=== PATIENT | male | born 1995 | race Caucasian/White ===

== ENCOUNTER 2024-12-31 16:42 | Inpatient (IN) | payer BC, SELFPAY ==
[2024-12-31] VITALS (13 sets, daily range): BP systolic 129–156; BP diastolic 68–88; PULSE 68–110; RESP 16–20; TEMP 36.5–36.7; O2SAT 95–100; BMI 23.1; BMI 23.9
--- OUTSIDE RECORDS SUMMARY | 2024-12-31 16:43 | XMS_ITS | Clinical Summary ---
Author Organization [employer] Address [address] [place] [id number] Care Team Providers Care Site Supervisor Name Role Phone Rosy Lunsford Primary Care Provider [phone] Allergies Active Allergy Reactions Criticality Noted Date Comments Venlafaxine Analogues Other - Describe I n Comment Field 06/02/2018 Worse depression Medications buPROPion (WELLBUTRIN XL) 150 mg Extended-Release tabletIndications :MDD (major depressive disorder), recurrent episode, moderate (HC) Take 1 Tablet (150 mg) by mouth once daily in the morning. 90 Tablet 3 4 Active metoprolol succinate (Toprol XL) 25 mg Sustained-Release tabletIndications :Elevated BP without diagnosis of hypertension Take 1 Tablet (25 mg) by mouth once daily. 90 Tablet 3 4 Active cyclobenzaprine (FLEXERIL) 10 mg tabletIndications :Muscle spasm Take 1 Tablet (10 mg) by mouth 3 times daily if needed for Muscle Spasm. 30 Tablet 1 4 Active albuterol HFA (PRO-AIR; VENTOLIN; PROVENTIL) 90 mcg/actuation inhalerIndication s:Mild intermittent asthma without complication (HC) INHALE 2 PUFFS BY MOUTH EVERY 4 NEEDED FOR SHORTNESS OF BREATH OR WHEEZING 18 g 11 4 Active durable medical equipment (DME)Indications: Closed boxer's fracture, initial encounter TKO - The knuckle orthosis, left ulnar, right radial 4 Active busPIRone (BUSPAR) 10 mg tabletIndications :KATELYN (generalized anxiety disorder) Take 2 Tablets (20 mg) by mouth two times daily. 360 Tablet 3 Active Active Problems Problem Noted Date Diagnosed Date MDD (major depressive disord er), recurrent episode, moderate 04/27/2024 KATELYN (generalized anxiety disorder) 05/31/2023 Tobacco use disorder 12/16/2021 Reactive depression 06/03/2018 Anxiety 06/03/2018 Mild intermittent asthma without complication Congenital pes planus 12/20/2008 Unspecified asthma(493.90) 03/22/2007 Resolved Problems Problem Noted Date Diagnosed Date Resolved Date Pneumothorax on left 11/10/2023 024 Encounters Date Type Department Care Team Description 10/13/2024 Patient Outreach [facility] Care Management - Care Management Navigation/[facility] [address] [place] [address] Yany Lugo LGSW Population Health (Community Resource Navigation) 10/12/2024 3:05 PM FUR FINISHER Ancillary Procedure [facility] [address] [place] [address] 10/12/2024 3:00 PM FUR FINISHER Office Visit [facility] [address] [place] [address] Garfield Rey MD Recheck (Left hand pain) 10/12/2024 Travel from Last 3 Months Immunizations Immunization Administration Dates Next Due COVID-19 vaccine (Pfizer-Bio NTech 30mcg/0.3mL) 12YO+ ZACHARIAH-SUCROSE PF, MDV 10/22/2021 COVID-19 vaccine (Pfizer-Bio NTech 30mcg/0.3mL) PF, MDV 01/03/2021,12/13/2020 HIB PRP-T (ActHIB,Hiberix) 07/13/1996,,03/19/1995,02/05 Hepatitis B (Peds) 09/21/1995,03/19/1995, 995 Inactivated Polio Vaccine 07/06/2007,06/02/2000 Influenza, IIV3 (Age >=3 years) 07/31/2010,07/06 Influenza, IIV4 07/07/2023,06/23/2022,06/20/2021 Influenza, IIV4 (=>6mos) MDV 06/13/2020,07/05/20 MMR 06/02/2000,07/13/1996 Meningococcal Vaccine (Menactra) 07/06/2007 Oral Polio Vaccine 06/01/1995,03/19/1995, 995 Tdap 11/10/2023,07/06/2007 Varicella Vaccine 07/13/1996 Family History Medical History Relation Name Comments Asthma Brother Liver cancer Father in 5 month s Good Health Mother Sonia Good Health Sister Relation Name Status Comments Brother Father Mother Sonia Alive Sister Social History Tobacco Use Types Packs/Day Years Used Date Smoking Tobacco: Every Day Cigarettes 0.5 11.3 Started: 09/13/2013 Smokeless Tobacco: Never Tobacco Cessation:Ready to Q uit: No; Counseling Given: Yes Alcohol Use Standard Drinks/Week Comments No 0 (1 standard drink = 0.6 oz pur e alcohol) PHQ-2 Answer Date Recorded PHQ-2 TOTAL SCORE 2 04/27/2024 Social Connections Answer Date Recorded Do you often feel lonely or isolated from those around you? 4 09/14/2024 Financial Resource Strain Answer Date R ecorded Difficulty of Paying Living Expenses 1 09/14/2024 Difficulty of Paying Living Expenses 2 09/14/2024 Food Insecurity Answer Date Recorded Do you worry your food will run out before you are able to buy more? 2 09/14/2024 Transportation Needs Answer Date Record ed Does lack of transportation keep you from medica l appointments? 1 09/14/2024 Does lack of transportation keep you from work, meetings or getting things that you need? 1 09/14/2024 Housing Stability Answer Date Recorded What is your housing situation today? 1 09/14/2024 Utilities Answer Date Recorded Do you have trouble paying f or utilities (for example, heat, electricity, water, phone)? 2 09/14/2024 Sex and Gender Information Value Date Recorded Sex Assigned at Not on file Legal Sex Male 5:26 AM FUR FINISHER Gender Identity Not on file Sexual Orientation Not on file Occupation Industry Job Start Date Job End Date Not on file Not on file Not on file Not on file Obstetrics History Last Filed Vital Signs Vital Sign Reading Time Taken Comments Blood Pressure 149/81 09/14/2024 8:21 AM FUR FINISHER Pulse 67 09/14/2024 8:21 AM FUR FINISHER Temperature 37.1 C (98.8 F) 10/10/2018 1:59 PM FUR FINISHER Respiratory Rate - - Oxygen Saturation 100% 09/14/2024 8:21 AM FUR FINISHER Inhaled Oxygen Concentration - - Weight 75.8 kg (167 lb) 09/14/2024 8:21 AM FUR FINISHER Height 182.9 cm (6' 0.01) 06/23/2022 4:02 PM CD T Body Mass Index 22.64 06/23/2022 4:02 PM CDT Plan of Treatment Health Maintenance Due Date Last Done Comments HIV for age 15-65 2009 Hepatitis C screening for ag e 18-79 2012 Pneumococcal series for age 6-49 (1 of 2 - PCV) 2013 BMI (ht and wt on same day) for age 18+ 06/23/2023 06/23/2022, 01/07/2021, 12/10/2020, Additional history exists COVID-19 vaccine series ( season) 2024 10/22/2021, 10/22/2021, 01/03/2021, Additional history exists Depression screening for age 12+ 04/27/2025 04/27/2024, 05/11/2023, 06/23/2022, Additional history exists Influenza Vaccine (Season Ended) 2025 07/07/2023, 06/23/2022, 06/20/2021, Additional history exists Tetanus booster 11/10/2033 11/10/2023, 07/06/2007 Tdap Completed 11/10/2023, 07/06/2007 Procedures Procedure Name Priority Date/Time Associated Diagnosis Comments XR HAND 3 VIEWS LEFT Routine 10/12/2024 3:07 PM FUR FINISHER 5th metacarpal neck fracture, left hand from Last 3 Months Results * XR HAND 3 VIEWS LEFT (10/12/2024 3:07 PM FUR FINISHER) Anatomical Region Laterality Modality HANDS, HAND L Digital Radiogra phy Impressions 10/13/2024 8:56 AM FUR FINISHER See above All services were personally performed by Garfield Rey MD. Documentation performed by Marizol Vergara ATC based on my observation of services performed and provider statements to me. Garfield Rey MD 10/12/2024 Narrative 10/13/2024 8:56 AM FUR FINISHER This radiology exam was performed at the [place] and interpreted by interpreted by Garfield Rey MD. HISTORY: A 28 y.o. year - old male with left hand pain with history of trauma. TECHNICAL: THREE views of the left hand were obtained consisting of a PA, Lateral, and Oblique. FINDINGS: Radiographs of the left hand are reviewed today and show interval near complete healing at fifth metacarpal neck fracture site with unchanged alignment with approximate 40 degrees of apex dorsal angulation. There is new abundant callus forming. us Garfield Rey MD GENERAL IMAGING Final Re sult from Last 3 Months Insurance [facility] x5 (Home) [phone] x5 (Work) [employer] [address] [address] [place] [address] [employer] DEPT [id number] [place] [address] Care Teams Site Supervisor Relationship Specialty Start Date End Date Rosy Lunsford PA [address] [place], [place] [id number] PCP - General Physician Lard Bleacher 05/14/23
--- NOTE | 2024-12-31 17:01 | CRLHL7_ITS ---
For Patients: As a result of the Cures Act, medical imaging exams and procedure reports are released immediately into your electronic medical record. You may view this report before your referring provider. If you have questions, please contact your health care provider. INDICATION: : Right chest pain, history of pneumothorax. COMPARISON: Chest radiograph on January 01, 2022 and prior studies TECHNIQUE: Two view(s) of the chest FINDINGS: The cardiomediastinal silhouette and pulmonary vasculature are unremarkable. There is no focal airspace consolidation or pleural effusion. Moderate sized right pneumothorax with air gap measuring approximately 3.5 centimeters at the right lung apex. No displaced fractures. IMPRESSION: Moderate size right pneumothorax. Dictated by Zain Avendaño MD @ 12/31/2024 5:33:37 PM (Electronically Signed)
[2024-12-31] MEDS: KETOROLAC 15 MG/ML inj IVP (17:19)
[2024-12-31] MEDS: 0.9 % SODIUM CHLORIDE 500 ML 500 ML IV (17:19)
[2024-12-31 17:40] LABS: Troponin, Point-of-Care* 0.01 ng/ml (0.01-0.04)
--- NOTE | 2024-12-31 17:59 | ED_ITS ---
HPI - General Adult General Date Seen: 12/31/24 Chief complaint: Chest Pain Stated complaint: chest pain Time Seen by Provider: 12/31/24 16:49 History of Present Illness HPI narrative: Patient is a 29-year-old generally healthy young man here with his fiancee for evaluation of right-sided chest pain which started about 45 minutes prior to coming in. He does have a history of spontaneous pneumothorax on the left which he says was about 3 cm in size and did not require chest tube. He says the pain on this side feels different to him, but he is not entirely sure. He denies any recent trauma or injury. It does hurt to take a deep breath but he does not fee l short of breath. He feels somewhat better with his arm above his head. It does not hurt to move his torso or to move his arm. He has not had recent fevers or cough. No recent immobility or trips. No leg swelling or pain. He has a history of anxiety and some tachycardia at baseline, he has a prescription for metoprolol for this, he did take that at home. He also took some Aleve. He uses marijuana and also smokes cigarettes. He denies any other substances and does not drink. He no longer takes bupropion but does take Buspar. Related Data Home Medications ?Medication ?Instructions ?Recorded ?Confirmed metoprolol succinate 25 mg 25 mg PO DAILY 04/15/23 11/10/23 tablet,extended release 24 hr bupropion HCl 150 mg tablet,12 hr 150 mg PO QDAY 11/10/23 11/10/23 sustained-release Allergies Allergy/AdvReac Type Severity Reaction Status Date / Time No Known Drug Allergies Allergy Verified 11/10/23 15:46 Review of Systems Status of ROS: Reports: 10 or more systems reviewed and unremarkable except as noted in History and below Exam Narrative: Exam Narrative: Vital signs reviewed In general, alert, nontoxic young man. He is breathing easily. Head: Normocephalic, atraumatic. Eyes: Sclera clear. Pupils equal and reactive. ENT: Mucous membranes moist. Neck: Supple without adenopathy. Heart: Regular rate and rhythm without murmur. Lungs: Clear. No increased work of breathing, crackles or wheezes. Breath sounds are equal. Chest wall nontender. Abdomen: Soft, nontender to palpation. Extremities: Well perfused, pulses intact. No significant edema. Range of motion of the right shoulder is normal. Neurologic: Alert, conversant. Speech fluent, face symmetric. Moves all extremities equally. Skin: Warm, dry well perfused. Affect: Normal. Const: Vital Signs, click to edit/add: Vital Signs - 24 hr 12/31/24 16:45 12/31/24 17:30 12/31/24 17:34 Temperature 98.0 F Pulse Rate 91 Pulse Rate [Pulse Oximeter] 110 H Respiratory Rate 18 Blood Pressure [Ri ght Upper Arm] 156/88 H Pulse Oximetry 100 96 100 Oxygen Delivery Me thod Room Air Nasal Cannula Oxygen Flow Rate 2 12/31/24 17:45 12/31/24 17:55 12/31/24 18:00 Temperature Pulse Rate 84 90 Pulse Rate [Pulse Oximeter] Respiratory Rate 18 Blood Pressure [Ri ght Upper Arm] Pulse Oximetry 99 99 Oxygen Delivery Me thod Oxygen Flow Rate 12/31/24 18:15 12/31/24 18:30 12/31/24 18:45 Temperature Pulse Rate 96 83 79 Pulse Rate [Pulse Oximeter] Respiratory Rate 16 Blood Pressure [Ri ght Upper Arm] Pulse Oximetry 98 99 97 Oxygen Delivery Me thod Oxygen Flow Rate Course Course ED Course: Initially mildly tachycardic but that resolved without treatment. An EKG was done following my evaluation and this showed sinus tachycardia with a ventricular rate of 107, otherwise unremarkable. Small voltages in lead 3 but I suspect this is related to lead placement. No acute ST segment changes. Normal indices. His initial troponin was normal. Of PA and lateral the chest by my review showed a small to moderate pneumothorax on the right without any evidence of tension. Final radiology read reviewed as well. I have discussed his care with General surgery. She agrees that a chest tube is not needed at this time. I have put him on some oxygen by nasal cannula, he is not desaturating at all, I gave him a little Toradol and he feels very comfortable at this time. Plan will be to admit him to the hospital for oxygen supplementation and observation, will repeat a chest x-ray in [address] Pelletier is aware of him and will follow-up on his chest x-ray, if he is worsening despite oxygen therapy he may need a chest tube at that time. If he decompensates at any time Dr. Pelletier is aware. Vital Signs Vital signs: Initial Vital Signs Temperature 98.0 F 12/31/24 16:45 Temperature Source Temporal Artery Scan 12/31/24 16:45 Pulse Rate 110 H 12/31/24 16:45 Pulse Rhythm Regular 12/31/24 16:45 Respiratory Rate 18 12/31/24 16:45 Blood Pressure 156/88 H 12/31/24 16:45 Blood Pressure Mean 110 H 12/31/24 16:45 Blood Pressure Position Supine 12/31/24 16:45 Pulse Oximetry 100 12/31/24 16:45 Oxygen Delivery Method Room Air 12/31/24 16:45 Vital Signs Temperature 98.0 F 12/31/24 16:45 Pulse Rate 110 H 12/31/24 16:45 Respiratory Rate 18 12/31/24 16:45 Blood Pressure 156/88 H 12/31/24 16:45 Pulse Oximetry 100 12/31/24 16:45 Oxygen Delivery Method Room Air 12/31/24 16:45 Temperature 98.0 F 12/31/24 16:45 Pulse Rate 79 12/31/24 18:45 Respiratory Rate 16 12/31/24 18:30 Blood Pressure 156/88 H 12/31/24 16:45 Pulse Oximetry 97 12/31/24 18:45 Oxygen Delivery Method Nasal Cannula 12/31/24 17:30 Oxygen Flow Rate 2 12/31/24 17:30 Medications Administered Medications: Discontinued Medications Generic Name Dose Route Start Last Admin Trade Name Freq PRN Reason Stop Dose Admin Sodium Chloride 500 mls @ 500 mls/hr 12/31/24 17:01 12/31/24 18:06 0.9 % Sodium Chloride 500 Ml IV 12/31/24 18:00 Infused .Q1H ONE Infusion Ketorolac Tromethamine 15 mg 12/31/24 17:01 12/31/24 17:19 Ketorolac 15 Mg/Ml Inj IVP 12/31/24 17:02 15 mg ONCE ONE Administration Medical Decision Making Lab Data Labs: Lab Results 12/31/24 12/31/24 Range/Units 17:02 17:15 D-Dimer Quant (PE/DVT) < 0.27 (0.00-0.50) ug/ml POC Troponin I 0.01 (0.01-0.04) ng/ml Imaging Data Chest x-ray: Attestation: I have reviewed the pertinent imaging results. Radiologist's impression: Patient: Osbaldo Jesus MR#: [id number] : 1995 Acct:[id number] Loc: ED Service Date: 12/31/[address]: Ordering Physician: Rosy Coyle M.D. Date of Service: 12/31/24 Procedure(s): XR chest 2V Accession Number(s): [id number] cc: Rosy Coyle M.D.; Provider,Not a Local~ ADDENDUM INDICATION: : Right chest pain, history of pneumothorax. COMPARISON: Chest radiograph on January 01, 2022 and prior studies TECHNIQUE: Two view(s) of the chest FINDINGS: The cardiomediastinal silhouette and pulmonary vasculature are unremarkable. There is no focal airspace consolidation or pleural effusion. Moderate sized right pneumothorax with air gap measuring approximately 3.5 centimeters at the right lung apex. No displaced fractures. IMPRESSION: Moderate size right pneumothorax. Dictated by Zain Avendaño MD @ 12/31/2024 5:33:37 PM ----- ADDENDUM ----- Report was received by Dr. Coyle at 1737 hours on 12/31/2024. Dictated by Zain Avendaño MD @ Dec 31 2024 5:39PM (Electronically Signed) For Patients: As a result of the Cures Act, medical imaging exams and procedure reports are released immediately into your electronic medical record. You may view this report before your referring provider. If you have questions, please contact your health care provider. INDICATION: : Right chest pain, history of pneumothorax. COMPARISON: Chest radiograph on January 01, 2022 and prior studies TECHNIQUE: Two view(s) of the chest FINDINGS: The cardiomediastinal silhouette and pulmonary vasculature are unremarkable. There is no focal airspace consolidation or pleural effusion. Moderate sized right pneumothorax with air gap measuring approximately 3.5 centimeters at the right lung apex. No displaced fractures. IMPRESSION: Moderate size right pneumothorax. Dictated by Zain Avendaño MD @ 12/31/2024 5:33:37 PM Discharge Plan Discharge Clinical Impression: Spontaneous pneumothorax Patient Disposition: Admitted As Observation
[2024-12-31 18:10] LABS: D Dimer Quantitative* < 0.27 ug/ml (0.00-0.50)
--- NOTE | 2024-12-31 19:07 | RESP.RT ---
Patient is a current smoker and vapes. This is his 2nd spontaneous pneumo. Patient is currently SATing 98-100% on room air. I would recommend keeping him on room air to identify if SATs begin to drop, and at that point we can place him on low flow supplemental O2 and check a chest x-ray. Pressurized or high flow O2 should be avoided unless a chest tube is in place. Patient at this time seems stable on room air and should be monitored.
--- NOTE | 2024-12-31 19:40 | PM.IMHP1 ---
Assessment and Plan Assessment and plan (1) Spontaneous pneumothorax: Problem comment: CXR shows moderate sized right pneumothorax with air gap measuring approximately 3.5 centimeters at the right lung apex No trauma or injury, recurrent, previous spontaneous left side 2021 (self reported as approximately 3 cm) Patient reports working with iodine powder prior to both events - according to medical literature there is no evidence to suggest that iodine powder itself can cause a pneumothorax ED provider discussed with General surgery, Dr. Pelletier - will follow Admit for monitoring, repeat CXR at 11:00 p.m., sooner if new or worsening symptoms, and pending these results, repeat CXR Wednesday Discussed supplemental oxygen with respiratory therapy. Patient saturating 98-100%. Advised against supplemental oxygen in order to monitor for acute changes in oxygenation and symptoms, allowing for earlier repeat imaging if needed. Otherwise low dose per NC or oxy mask prn comfort. High-flow oxygen not advised given potential for adverse event Status: Acute (2) Tobacco use disorder: Problem comment: Smokes tobacco and THC, occasionally vapes - risk factor for spontaneous pneumothorax Status: Acute (3) Generalized anxiety disorder: Problem comment: Currently on BuSpar 20 mg just in the morning. No longer on bupropion Status: Chronic (4) MDD (major depressive disorder): Problem comment: As above, #3 Status: Chronic (5) Tachycardia: Problem comment: Intermittent, currently stable on metoprolol Status: Chronic Total Time Spent Total Time Spent: Today I spent 75 minutes seeing the patient, reviewing Expanse and EPIC notes/diagnostics, discussing the care plan with our care time that includes social work, PT/OT, pharmacy, RT, intermediate and documenting my impressions and plan in the medical record. Hospitalist- H&P: HPI History of Present Illness Date Seen: 12/31/24 Chief complaint: chest pain Narrative: Osbaldo Jesus is a 29 year old male past medical history significant for MDD, KATELYN, tobacco use, tachycardia, previous spontaneous pneumothorax is admitted to the medical floor from the ED with a new spontaneous pneumothorax. Patient is seen with urmila at bedside. He reports sudden-onset right-sided chest pain, worse with deep breath, at approximately 4:30 p.m. this afternoon. Prior to this, was feeling his normal self. While this pain feels slightly different than the previous pneumothorax he presented to the ED to make sure. Reports chest pain has improved to 2/10 and is comfortable now. Denies shortness of breath at onset or currently. Has been saturating 97-100%. Denies recent fevers chills. Has occasional headaches which respond to ibuprofen. Denies dizziness or lightheadedness. No recent episodes of tachycardia, currently well controlled on metoprolol. Denies abdominal pain, nausea, vomiting, diarrhea. Denies recent trauma or injury. Previous left-sided spontaneous pneumothorax 2021. 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 Otherwise no other known exposures. Smokes tobacco and THC, occasionally vapes. Realizes these are risk factors for spontaneous pneumothorax. PCP is Rosy Lunsford PA-C. Review of Systems Narrative: REVIEW OF SYSTEMS: Complete review of systems performed and negative unless otherwise stated in HPI or below. [facility]SH [facility] Medical History Tachycardia ?R00.0 - Tachycardia, unspecified (ICD-10) Tobacco use disorder ?F17.200 - Nicotine dependence, unspecified, uncomplicated (ICD-10) Unspecified asthma ?J45.909 - Unspecified asthma, uncomplicated (ICD-10) MDD (major depressive disorder) ?F32.9 - Major depressive disorder, single episode, unspecified (ICD-10) Generalized anxiety disorder ?F41.1 - Generalized anxiety disorder (ICD-10) Social History What is your current living situation?: I presently have a place to live Problems where you live: no known problems Problems where you live details: N/A In the past 12 months, utilities in danger of being shut off: no In past 12 months, lack of transportation kept you from medical appts, meetings, work, or getting things needed for daily living: no In the past 12 mos, have been you worried that your food would run out before you had money to buy more?: never true In the past 12 mos, the food you bought just didn't last and you didn't have money to buy more?: never true Highest level of school completed/degree received: high school graduate Smoking Status: Current every day smoker Do you use any of these nicotine containing products: Vaping Products How often do you have a drink containing alcohol: never How often do you have six or more drinks on one occasion: Never AUDIT-C Alcohol total score: 0 Non-prescribed substance use: marijuana (any form) Caffeine: Yes How often does anyone, including family, friends and others, physically hurt you: never How often does anyone, including family, friends and others, insult or talk down to you: never How often does anyone, including family, friends and others, threaten you with harm: never How often does anyone, including family, friends and others, scream or curse at you: never service: No Meds Home Medications and Allergies Home Medications ?Medication ?Instructions ?Recorded ?Confirmed ?Type metoprolol succinate 25 mg 25 mg PO DAILY 04/15/23 11/10/23 History tablet,extended release 24 hr bupropion HCl 150 mg tablet,12 hr 150 mg PO QDAY 11/10/23 11/10/23 History sustained-release Allergies Allergy/AdvReac Type Severity Reaction Status Date / Time No Known Drug Allergies Allergy Verified 11/10/23 15:46 Exam Narrative: Exam Narrative: PHYSICAL EXAM General: Pleasant, conversant, NAD HEENT: Normocephalic, atraumatic, sclera white, EOMI, oral mucosa moist Cardiovascular: RRR, S1S2. No pitting edema Pulmonary: Slightly diminished right side, no rhonchi, rales, expiratory wheezes. No dyspnea on room air Neurological: Alert, answering questions appropriately, cranial nerves intact, no focal findings Extremities: No gross joint deformity or swelling. AROMI. Neurovascularly intact Skin: Warm, dry. Const: Vital Signs, click to edit/add: Vital Signs - 24 hr 12/31/24 16:45 12/31/24 17:30 12/31/24 17:34 Temperature 98.0 F Pulse Rate 91 Pulse Rate [Pulse Oximeter] 110 H Respiratory Rate 18 Blood Pressure [Ri ght Upper Arm] 156/88 H Pulse Oximetry 100 96 100 Oxygen Delivery Me thod Room Air Nasal Cannula Oxygen Flow Rate 2 12/31/24 17:45 12/31/24 17:55 12/31/24 18:00 Temperature Pulse Rate 84 90 Pulse Rate [Pulse Oximeter] Respiratory Rate 18 Blood Pressure [Ri ght Upper Arm] Pulse Oximetry 99 99 Oxygen Delivery Me thod Oxygen Flow Rate 12/31/24 18:15 12/31/24 18:30 12/31/24 18:45 Temperature Pulse Rate 96 83 79 Pulse Rate [Pulse Oximeter] Respiratory Rate 16 Blood Pressure [Ri ght Upper Arm] Pulse Oximetry 98 99 97 Oxygen Delivery Me thod Oxygen Flow Rate Hospitalist - H&P: Result Imaging Chest x-ray: Attestation: I have reviewed the pertinent imaging results. Radiologist's impression: The cardiomediastinal silhouette and pulmonary vasculature are unremarkable. There is no focal airspace consolidation or pleural effusion. Moderate sized right pneumothorax with air gap measuring approximately 3.5 centimeters at the right lung apex. No displaced fractures. IMPRESSION: Moderate size right pneumothorax.
--- NOTE | 2024-12-31 23:00 | CRLHL7_ITS ---
For Patients: As a result of the Cures Act, medical imaging exams and procedure reports are released immediately into your electronic medical record. You may view this report before your referring provider. If you have questions, please contact your health care provider. INDICATION: Pneumothorax TECHNIQUE: Chest radiograph 3 views COMPARISON: 12/31/2024 FINDINGS: Mediastinum: The mediastinum is normal in appearance. The heart silhouette is normal in size and morphology. Lung: Both lungs are unremarkable in appearance. No sign of pleural effusion seen. A right apical pneumothorax is noted with maximal pleural separation 4.3 cm which is slightly increased from prior examination. Bone and Soft tissue: Unremarkable for age. IMPRESSION: 1. A right apical pneumothorax is noted with maximal pleural separation 4.3 cm which is slightly increased from prior examination. Dictated by Jose Alberto Boggs MD @ 12/31/2024 11:09:16 PM Dictated by: Jose Alberto Boggs MD @ 12/31/2024 23:09:19 (Electronically Signed)
[2024-12-31] MEDS: SODIUM CHLORIDE 0.9 % (FLUSH) 10 ML SYRINGE 5 ML IVF (23:11)
[2025-01-01] VITALS (8 sets, daily range): BP systolic 143–188; BP diastolic 75–93; PULSE 68–77; RESP 16–17; TEMP 36.4–37.1; O2SAT 96–100
--- NOTE | 2025-01-01 06:00 | CRLHL7_ITS ---
For Patients: As a result of the Cures Act, medical imaging exams and procedure reports are released immediately into your electronic medical record. You may view this report before your referring provider. If you have questions, please contact your health care provider. INDICATION: Follow-up pneumothorax. COMPARISON: Prior studies going back to 12/31/2024 at 1720 hours, the most recent performed 12/31/2024 at 2306 hours. TECHNIQUE: 2 views. FINDINGS: Persistent large right pneumothorax. Air gap measures 43 mm, previously 39 mm. Estimated pneumothorax volume is 38 percent using the Villaseñor method. The left hemidiaphragm is slightly higher than the right which is unchanged compared to an older examination dated 01/01/2022. The right heart border overlies the spine which is also unchanged compared to the 2021 exam. Medical Devices: None. Lung Volumes: Adequate inspiration. No significant atelectasis. Lungs: Clear lungs. Pleura and Pleural spaces: Right pneumothorax as above. No significant pleural effusion. Mediastinum: Normal cardiomediastinal silhouette. Bony Thorax and Soft Tissues: No significant incidental findings. IMPRESSION: Enlarging right pneumothorax. Air gap measures 43 mm, previously 39 mm on the most recent prior study of 12/31/2024 at 2306 hours (my measurement; this was reported as an air gap of 43 mm). Interval accumulation of air at the peripheral right lung base is new since the prior study. Estimated pneumothorax volume is 38 percent using the Villaseñor method. No new signs to suggest tension pneumothorax. Dictated by Elías Pruitt MD @ 01/01/2025 6:37:14 AM (Electronically Signed)
--- NOTE | 2025-01-01 06:13 | PC.NURSE ---
Shift note ([id number]): Patient admitted from ED at 1900. Accompanied by SO. Pleasant, alert and oriented. Independent with ambulation. Reported having tolerable discomfort in upper right chest rated 2-3/10 during night. Reports no change in discomfort or symptoms this morning.?
[2025-01-01 06:30] LABS: Hematocrit 42.8 % (37.0-53.0); Hemoglobin* 14.5 gm/dL (13.5-17.5); Mean Corpuscular HGB Conc 34 gm/dL (32-36); Mean Corpuscular Hemoglobin 31 pg (26-34); Mean Corpuscular Volume 90 fL (80-100); Platelet Count* 278 K/uL (140-440); Red Blood Count 4.74 m/uL (4.30-5.90)
[2025-01-01 06:35] LABS: Slide Review Reflex No
[2025-01-01 06:43] LABS: Chloride* 108 mmol/L (96-114); Potassium* 4.6 mmol/L (3.6-5.1); Sodium* 138 mmol/L (135-149)
[2025-01-01 06:46] LABS: Anion Gap 7 mEq/L (7-15); Blood Urea Nitrogen* 13 mg/dL (5-24); Calcium* 8.7 mg/dL (8.4-10.6); Carbon Dioxide* 23 mmol/L (20-32); Creatinine* 0.9 mg/dL (0.5-1.5); Est. Creatinine Clearance* 131.73; Estimated Glomerular Filt Rate 118 ml/min; Glucose* 101 mg/dL (60-115)
[2025-01-01] MEDS: BUSPIRONE 10 MG TABLET 20 MG PO (07:22)
[2025-01-01] MEDS: fentaNYL 100 MCG/2 ML inj IVP (08:13)
[2025-01-01] MEDS: MIDAZOLAM HCL 1 MG/ML inj 4 MG IVP (08:13)
--- NOTE | 2025-01-01 08:28 | CRLHL7_ITS ---
For Patients: As a result of the Century Cures Act, medical imaging exams and procedure reports are released immediately into your electronic medical record. You may view this report before your referring provider. If you have questions, please contact your health care provider. INDICATION: Chest tube placement TECHNIQUE: Chest 1 views. COMPARISON: Chest radiograph 01/01/2025. FINDINGS: Cardiovasculature and mediastinum: Heart size is normal. Unremarkable mediastinum. Lungs and pleural spaces: Interval placement of right thoracostomy tube with decreased size of the right pneumothorax, now with 1.7 centimeters of pleural-parenchymal separation, previously 4.3 centimeters. No pleural effusion. Lungs are clear. Bones and soft tissues: No significant findings. IMPRESSION: Interval placement of right thoracostomy tube with decreased size of the right pneumothorax. Dictated by Viviane Prado MD @ 01/01/2025 8:48:11 AM (Electronically Signed)
[2025-01-01] MEDS: OXYCODONE 5 MG TABLET PO ×4 (08:40→23:44)
[2025-01-01] MEDS: METOPROLOL SUCCINATE (XL) 25 MG TAB PO (08:44)
[2025-01-01] MEDS: SODIUM CHLORIDE 0.9 % (FLUSH) 10 ML SYRINGE 5 ML IVF ×4 (08:44→20:56)
[2025-01-01] MEDS: ACETAMINOPHEN 325 MG TABLET PO ×2 (08:51→19:54)
--- NOTE | 2025-01-01 08:56 | PM.GSCN ---
History of Present Illness Consult details Date Seen: 01/01/25 Consult date: 01/01/25 Narrative: Patient presented to the emergency department with right-sided chest pain and shortness of breath. He says it started yesterday shortly after he smoked weed. He did have a lot of coughing from a. He is an everyday tobacco smoker. He has a history of a spontaneous pneumothorax on the left side. Per the patient that was managed conservatively. He has never had a chest tube before. He has never had a pneumothorax on the right side. He denies any family history of spontaneous pneumothorax. He is otherwise healthy. Review of Systems Status of ROS: Reports: 6 or more systems reviewed and unremarkable except as noted in History and below [facility] Medical History Tachycardia ?R00.0 - Tachycardia, unspecified (ICD-10) Tobacco use disorder ?F17.200 - Nicotine dependence, unspecified, uncomplicated (ICD-10) Unspecified asthma ?J45.909 - Unspecified asthma, uncomplicated (ICD-10) MDD (major depressive disorder) ?F32.9 - Major depressive disorder, single episode, unspecified (ICD-10) Generalized anxiety disorder ?F41.1 - Generalized anxiety disorder (ICD-10) Social History What is your current living situation?: I presently have a place to live Problems where you live: no known problems Problems where you live details: N/A In the past 12 months, utilities in danger of being shut off: no In past 12 months, lack of transportation kept you from medical appts, meetings, work, or getting things needed for daily living: no In the past 12 mos, have been you worried that your food would run out before you had money to buy more?: never true In the past 12 mos, the food you bought just didn't last and you didn't have money to buy more?: never true Highest level of school completed/degree received: high school graduate Smoking Status: Current every day smoker Do you use any of these nicotine containing products: Vaping Products How often do you have a drink containing alcohol: never How often do you have six or more drinks on one occasion: Never AUDIT-C Alcohol total score: 0 Non-prescribed substance use: marijuana (any form) Caffeine: Yes How often does anyone, including family, friends and others, physically hurt you: never How often does anyone, including family, friends and others, insult or talk down to you: never How often does anyone, including family, friends and others, threaten you with harm: never How often does anyone, including family, friends and others, scream or curse at you: never service: No Meds Home Medications and Allergies Home Medications ?Medication ?Instructions ?Recorded ?Confirmed ?Type metoprolol succinate 25 mg 25 mg PO DAILY 04/15/23 11/10/23 History tablet,extended release 24 hr bupropion HCl 150 mg tablet,12 hr 150 mg PO QDAY 11/10/23 11/10/23 History sustained-release Allergies Allergy/AdvReac Type Severity Reaction Status Date / Time No Known Drug Allergies Allergy Verified 11/10/23 15:46 Exam Narrative: Exam Narrative: General: Alert and oriented, no acute distress Respiratory: Equal breath rise, maintained on room air. No accessory muscle use. Some pain with deep inspiration. No tachypnea CV: Well perfused Const: Vital Signs, click to edit/add: Vital Signs - 24 hr 12/31/24 16:45 12/31/24 17:30 12/31/24 17:34 Temperature 98.0 F Pulse Rate 91 Pulse Rate [Left P ulse Oximeter] Pulse Rate [Pulse Oximeter] 110 H Respiratory Rate 18 Blood Pressure [Le ft Arm] Blood Pressure [Ri ght Arm] Blood Pressure [Ri ght Upper Arm] 156/88 H Pulse Oximetry 100 96 100 Oxygen Delivery Me thod Room Air Nasal Cannula Oxygen Flow Rate 2 12/31/24 17:45 12/31/24 17:55 12/31/24 18:00 Temperature Pulse Rate 84 90 Pulse Rate [Left P ulse Oximeter] Pulse Rate [Pulse Oximeter] Respiratory Rate 18 Blood Pressure [Le ft Arm] Blood Pressure [Ri ght Arm] Blood Pressure [Ri ght Upper Arm] Pulse Oximetry 99 99 Oxygen Delivery Me thod Oxygen Flow Rate 12/31/24 18:15 12/31/24 18:30 12/31/24 18:45 Temperature Pulse Rate 96 83 79 Pulse Rate [Left P ulse Oximeter] Pulse Rate [Pulse Oximeter] Respiratory Rate 16 Blood Pressure [Le ft Arm] Blood Pressure [Ri ght Arm] Blood Pressure [Ri ght Upper Arm] Pulse Oximetry 98 99 97 Oxygen Delivery Me thod Oxygen Flow Rate 12/31/24 19:20 12/31/24 19:20 12/31/24 20:05 Temperature 98.0 F Pulse Rate Pulse Rate [Left P ulse Oximeter] 76 Pulse Rate [Pulse Oximeter] Respiratory Rate 18 Blood Pressure [Le ft Arm] Blood Pressure [Ri ght Arm] 142/84 H Blood Pressure [Ri ght Upper Arm] Pulse Oximetry 98 97 95 Oxygen Delivery Me thod Room Air Room Air Room Air Oxygen Flow Rate 12/31/24 23:00 01/01/25 03:00 Temperature 97.7 F 97.9 F Pulse Rate Pulse Rate [Left P ulse Oximeter] 68 68 Pulse Rate [Pulse Oximeter] Respiratory Rate 20 17 Blood Pressure [Le ft Arm] 129/68 145/75 H Blood Pressure [Ri ght Arm] Blood Pressure [Ri ght Upper Arm] Pulse Oximetry 97 99 Oxygen Delivery Me thod Room Air Nasal Cannula Oxygen Flow Rate 1.5 Results Labs Labs: Diabetes panel 01/01/25 Range/Units 06:19 Sodium 138 (135-149) mmol/L Potassium 4.6 (3.6-5.1) mmol/L Chloride 108 (96-114) mmol/L Carbon Dioxide 23 (20-32) mmol/L BUN 13 (5-24) mg/dL Creatinine 0.9 (0.5-1.5) mg/dL Glucose 101 (60-115) mg/dL Calcium 8.7 (8.4-10.6) mg/dL Calcium panel 01/01/25 Range/Units 06:19 Calcium 8.7 (8.4-10.6) mg/dL Pituitary panel 01/01/25 Range/Units 06:19 Sodium 138 (135-149) mmol/L Potassium 4.6 (3.6-5.1) mmol/L Chloride 108 (96-114) mmol/L Carbon Dioxide 23 (20-32) mmol/L BUN 13 (5-24) mg/dL Creatinine 0.9 (0.5-1.5) mg/dL Glucose 101 (60-115) mg/dL Calcium 8.7 (8.4-10.6) mg/dL Adrenal panel 01/01/25 Range/Units 06:19 Sodium 138 (135-149) mmol/L Potassium 4.6 (3.6-5.1) mmol/L Chloride 108 (96-114) mmol/L Carbon Dioxide 23 (20-32) mmol/L BUN 13 (5-24) mg/dL Creatinine 0.9 (0.5-1.5) mg/dL Glucose 101 (60-115) mg/dL Calcium 8.7 (8.4-10.6) mg/dL All other labs normal. Imaging Chest x-ray: report reviewed and image reviewed General Surgery Procedures Chest Tube Chest Tube 1: Chest tube location: Lateral Chest Size of tube: 20 Procedure: placement Preperation: Yes sterile drapes applied Tube sutured to skin: Yes Sterile dressing applied: Yes Anesthesia: 1% Lidocaine Volume anesthetic (ml): 10 Incision made with: other (15) Post procedure: sutured to skin and sterile dressing applied Leong of air heard: Yes Tube Drainage: none Post procedure CXR?: Yes Patient tolerated procedure: Yes Additional comments: Moderate sedation used for procedure. Total of 2 Versed 100 fentanyl. Progress Note:A&P Assessment and plan (1) Spontaneous pneumothorax: Status: Acute Assessment and Plan: Patient presents for a 1st episode spontaneous pneumothorax on the right side. Interval chest x-rays overnight did show worsening of the pneumothorax. Recommendations are for chest tube placement. Risks and benefits of the procedure were discussed at length with the patient. A right-sided chest tube was placed without difficulty. Patient tolerated procedure well. Plan -regular diet -p.o. pain medicine as needed -chest tube to -20 suction, okay to clamp with ambulation
[2025-01-01] MEDS: LORazepam 0.5 MG TABLET PO ×2 (09:26→19:50)
--- NOTE | 2025-01-01 10:30 | P.IMPN_ITS ---
Assessment and Plan Assessment and plan (1) Spontaneous pneumothorax: Problem comment: 12/30/2024: CXR shows moderate sized right pneumothorax with air gap measuring approximately 3.5 centimeters at the right lung apex No trauma or injury, recurrent, previous spontaneous left side 2021 (self re ported as approximately 3 cm) Patient reports working with iodine powder prior to both events - according to medical literature there is no evidence to suggest that iodine powder itself can cause a pneumothorax ED provider discussed with General surgery, Dr. Pelletier - will follow Admit for monitoring, repeat CXR at 11:00 p.m., sooner if new or worsening symptoms, and pending these results, repeat CXR Wednesday Discussed supplemental oxygen with respiratory therapy. Patient saturating 98- 100%. Advised against supplemental oxygen in order to monitor for acute changes in oxygenation and symptoms, allowing for earlier repeat imaging if needed. Otherwise low dose per NC or oxy mask prn comfort. High-flow oxygen not advised given potential for adverse event 12/31/2024: Enlarging spontaneous right pneumothorax. Status post chest tube placement with decrease in size of pneumothorax. Dr. Pelletier is managing the chest tube and chest tube management efforts. Status: Acute (2) Tachycardia: Problem comment: Intermittent, currently stable on metoprolol Status: Chronic (3) Tobacco use disorder: Problem comment: Smokes tobacco and THC, occasionally vapes - risk factor for spontaneous pneumothorax Status: Acute (4) MDD (major depressive disorder): Problem comment: As above, #3 Status: Chronic (5) Generalized anxiety disorder: Problem comment: - Currently on BuSpar 20 mg just in the morning. No longer on bupropion - Continue with oral analgesia as needed and as needed lorazepam for breakthrough anxiety at this time. Status: Chronic Plan 1. Reviewed impression with patient and sister 2. Reviewed with Dr. Pelletier 3. Answer questions to his satisfaction 4. Continue with current management strategy Total Time Spent Total Time Spent: 30 minutes Subjective Date Seen: 01/01/25 Interval history: Admission history of present illness, 12/31/2024: ?29 year old male past medical history significant for MDD, KATELYN, tobacco use, tachycardia, previous spontaneous pneumothorax is admitted to the medical floor from the ED with a new spontaneous pneumothorax. ?Patient is seen with urmila at bedside. He reports sudden-onset right-sided chest pain, worse with deep breath, at approximately 4:30 p.m. this afternoon. Prior to this, was feeling his normal self. While this pain feels slightly different than the previous pneumothorax he presented to the ED to make sure. Reports chest pain has improved to 2/10 and is comfortable now. Denies shortness of breath at onset or currently. Has been saturating 97-100%. Denies recent fevers chills. Has occasional headaches which respond to ibuprofen. Denies dizziness or lightheadedness. No recent episodes of tachycardia, currently well controlled on metoprolol. Denies abdominal pain, nausea, v omiting, diarrhea. ?Denies recent trauma or injury. Previous left-sided spontaneous pneumothorax 2021. 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 Otherwise no other known exposures. ?Smokes tobacco and THC, occasionally vapes. Realizes these are risk factors for spontaneous pneumothorax. PCP is Rosy Lunsford PA-C.? Hospital day 2, 01/01/2025: Before chest tube placement today he noted the right-sided chest discomfort was fairly controlled but steady and worse with deep breaths. Denies dyspnea at rest. Acknowledges dyspnea with exertion since onset yesterday. Has baseline dry intermittent cough. Acknowledges baseline level of anxiety anxiety, plus more anxiety about his current condition and situation. Denies nausea or vomiting, syncope or near syncope, orthostasis, dizziness, edema, palpitations or fluttering. Exam Narrative: Exam Narrative: Examine the patient in his hospital room. Appears anxious. Otherwise no acute distress. Alert and oriented x4. Lungs clear to auscultation. Shallow breaths. No subcutaneous emphysema. No CVA tenderness. Heart tones with regular rhythm, normal S1-S2. PMI not laterally displaced. Abdomen with active bowel sounds, soft, nontender. Extremities without edema. Extremities cool to touch. Const: Vital Signs, click to edit/add: Vital Signs - 24 hr 12/31/24 16:45 12/31/24 17:30 12/31/24 17:34 Temperature 98.0 F Pulse Rate 91 Pulse Rate [Left P ulse Oximeter] Pulse Rate [Pulse Oximeter] 110 H Respiratory Rate 18 Blood Pressure [Le ft Arm] Blood Pressure [Ri ght Arm] Blood Pressure [Ri ght Upper Arm] 156/88 H Pulse Oximetry 100 96 100 Oxygen Delivery Me thod Room Air Nasal Cannula Oxygen Flow Rate 2 04/20/25 17:45 12/31/24 17:55 12/31/24 18:00 Temperature Pulse Rate 84 90 Pulse Rate [Left P ulse Oximeter] Pulse Rate [Pulse Oximeter] Respiratory Rate 18 Blood Pressure [Le ft Arm] Blood Pressure [Ri ght Arm] Blood Pressure [Ri ght Upper Arm] Pulse Oximetry 99 99 Oxygen Delivery Me thod Oxygen Flow Rate 12/31/24 18:15 12/31/24 18:30 12/31/24 18:45 Temperature Pulse Rate 96 83 79 Pulse Rate [Left P ulse Oximeter] Pulse Rate [Pulse Oximeter] Respiratory Rate 16 Blood Pressure [Le ft Arm] Blood Pressure [Ri ght Arm] Blood Pressure [Ri ght Upper Arm] Pulse Oximetry 98 99 97 Oxygen Delivery Me thod Oxygen Flow Rate 12/31/24 19:20 12/31/24 19:20 12/31/24 20:05 Temperature 98.0 F Pulse Rate Pulse Rate [Left P ulse Oximeter] 76 Pulse Rate [Pulse Oximeter] Respiratory Rate 18 Blood Pressure [Le ft Arm] Blood Pressure [Ri ght Arm] 142/84 H Blood Pressure [Ri ght Upper Arm] Pulse Oximetry 98 97 95 Oxygen Delivery Me thod Room Air Room Air Room Air Oxygen Flow Rate 12/31/24 23:00 01/01/25 03:00 01/01/25 07:00 Temperature 97.7 F 97.9 F Pulse Rate Pulse Rate [Left P ulse Oximeter] 68 68 Pulse Rate [Pulse Oximeter] Respiratory Rate 20 17 16 Blood Pressure [Le ft Arm] 129/68 145/75 H Blood Pressure [Ri ght Arm] Blood Pressure [Ri ght Upper Arm] Pulse Oximetry 97 99 Oxygen Delivery Me thod Room Air Nasal Cannula Oxygen Flow Rate 1.5 01/01/25 07:35 Temperature 97.5 F L Pulse Rate Pulse Rate [Left P ulse Oximeter] 76 Pulse Rate [Pulse Oximeter] Respiratory Rate 16 Blood Pressure [Le ft Arm] 143/92 H Blood Pressure [Ri ght Arm] Blood Pressure [Ri ght Upper Arm] Pulse Oximetry 100 Oxygen Delivery Me thod Room Air Oxygen Flow Rate Labs Labs: Laboratory Results - last 24 hr 12/31/24 12/31/24 01/01/25 17:02 17:15 06:19 WBC 8.40 RBC 4.74 Hgb 14.5 Hct 42.8 MCV 90 MCH 31 MCHC 34 Plt Count 278 D-Dimer Quant (PE/DVT) < 0.27 Sodium 138 Potassium 4.6 Chloride 108 Carbon Dioxide 23 Anion Gap 7 BUN 13 Creatinine 0.9 Estimated Creat Clear 131.73 Estimated GFR 118 Glucose 101 Calcium 8.7 POC Troponin I 0.01 Imaging Chest x-ray: Attestation: I have reviewed the pertinent imaging results. Radiologist's impression: I reviewed all serial chest x-rays obtained from yesterday up until this time. Initially noted to have an expanding right pneumothorax. Has since had chest tube placement with the following radiology interpretation: FINDINGS: Cardiovasculature and mediastinum: Heart size is normal. Unremarkable mediastinum. Lungs and pleural spaces: Interval placement of right thoracostomy tube with decreased size of the right pneumothorax, now with 1.7 centimeters of pleural-parenchymal separation, previously 4.3 centimeters. No pleural effusion. Lungs are clear. Bones and soft tissues: No significant findings. IMPRESSION: Interval placement of right thoracostomy tube with decreased size of the right pneumothorax.
[2025-01-01] MEDS: HYDROmorphone 0.5 mg/0.5 ml inj IVP ×4 (11:38→20:56)
[2025-01-01] MEDS: ONDANSETRON 2 MG/ML inj 4 MG IVP ×2 (15:39→19:51)
[2025-01-01] MEDS: NICOTINE 14 mg PATCH 1 PATCH TRANSDERMA (18:28)
--- NOTE | 2025-01-01 18:48 | PC.NURSE ---
Pt doing well. VSS. Pain mildly controlled with PRN medication, ice, abdominal binder and pillow support. Pt has had mild nausea, PRN zofran effective. Nicotine patch applied to left outer upper arm. Chest tube remains in place, dressing is clean dry and intact. <5ml output in chest tube. Pt sating 98-100% on room air, denies SOB. Pt able to ambulate to bathroom with standby assist. Resting well at this time with family at bedside.
[2025-01-02] MEDS: ACETAMINOPHEN 325 MG TABLET PO ×2 (02:38→15:25)
[2025-01-02] MEDS: HYDROmorphone 0.5 mg/0.5 ml inj IVP ×4 (02:39→23:30)
[2025-01-02] MEDS: SODIUM CHLORIDE 0.9 % (FLUSH) 10 ML SYRINGE 5 ML IVF ×3 (02:40→08:12)
[2025-01-02 03:00] VITALS: BP 159/92; PULSE 77; RESP 16; O2SAT 99
--- NOTE | 2025-01-02 06:00 | CRLHL7_ITS ---
For Patients: As a result of the Century Cures Act, medical imaging exams and procedure reports are released immediately into your electronic medical record. You may view this report before your referring provider. If you have questions, please contact your health care provider. INDICATION: Pneumothorax TECHNIQUE: Chest 1 views. COMPARISON: Chest radiograph 01/01/2025. FINDINGS: Cardiovasculature and mediastinum: Heart size is normal. Unremarkable mediastinum. Lungs and pleural spaces: Decreased size of the right apical pneumothorax with 0.8 centimeters of pleural-parenchymal separation, previously 1.7 centimeters. Right thoracostomy tube is in similar position. Bones and soft tissues: No significant findings. IMPRESSION: Decreased size of the right apical pneumothorax with thoracostomy tube in similar position. Dictated by Viviane Prado MD @ 01/02/2025 6:14:48 AM (Electronically Signed)
[2025-01-02] MEDS: OXYCODONE 5 MG TABLET PO ×4 (06:04→22:20)
--- NOTE | 2025-01-02 06:18 | PC.NURSE ---
19-07: pleasant and cooperative. Calls appropriately. Rating pain 2-6/10 in R chest. Coil Machine Supervisor encouraged to stay on top of Oxy & Tylenol, Dilaudid for breakthrough pain. Ativan given for generalized anxiety. Pt slept well, decided to pass on prn oxy that could have been given at 0400 so he could sleep, stated he would call when he woke. VSS. Chest tube connected to suction. No air leak noted. 7mL bloody chest tube output this shift. Encouraging pt to take deep breaths as tolerated. O2 sats 99-100%. adjusto writer operator gave pt printout from [employer] regarding pneumothorax & education.
[2025-01-02 06:38] LABS: Hemoglobin* 14.1 gm/dL (13.5-17.5); Mean Corpuscular HGB Conc 34 gm/dL (32-36); Mean Corpuscular Hemoglobin 31 pg (26-34); Mean Corpuscular Volume 91 fL (80-100); Platelet Count* 289 K/uL (140-440); Red Blood Count 4.62 m/uL (4.30-5.90); White Blood Count* 9.69 K/uL (4.50-11.00)
[2025-01-02 06:45] LABS: Slide Review Reflex No
[2025-01-02 06:50] LABS: Chloride* 103 mmol/L (96-114); Sodium* 136 mmol/L (135-149)
[2025-01-02 06:51] LABS: Potassium* 4.4 mmol/L (3.6-5.1)
[2025-01-02 06:53] LABS: Blood Urea Nitrogen* 13 mg/dL (5-24); Creatinine* 0.9 mg/dL (0.5-1.5); Est. Creatinine Clearance* 130.05; Estimated Glomerular Filt Rate 118 ml/min
[2025-01-02 06:54] LABS: Anion Gap 8 mEq/L (7-15); Calcium* 8.9 mg/dL (8.4-10.6); Carbon Dioxide* 25 mmol/L (20-32); Glucose* 99 mg/dL (60-115)
[2025-01-02 07:43] VITALS: BP 155/90; PULSE 75; RESP 18; TEMP 36.7; O2SAT 99
--- NOTE | 2025-01-02 08:09 | PM.GSPN ---
Subjective Subjective Date Seen: 01/02/25 Interval history: Patient is doing much better this morning. He continues to have pain at his chest tube site, but ?improved compared to yesterday?. No concerns. Exam Narrative: Exam Narrative: General: Alert and oriented, no acute distress Respiratory: Right-sided chest tube in place to suction. Patient examined talking and well coughing, no evidence of air leak. Const: Vital Signs, click to edit/add: Vital Signs - 24 hr 01/01/25 11:44 01/01/25 15:00 01/01/25 15:00 Temperature 98.7 F 98.1 F Pulse Rate [Left P ulse Oximeter] 70 72 Respiratory Rate 16 16 16 Blood Pressure [Le ft Arm] 147/93 H 145/88 H Pulse Oximetry 100 96 Oxygen Delivery Me thod Room Air Room Air 01/01/25 19:30 01/01/25 23:00 01/01/25 23:40 Temperature 98 F 97.7 F Pulse Rate [Left P ulse Oximeter] 70 77 Respiratory Rate 16 16 16 Blood Pressure [Le ft Arm] 188/82 H 149/85 H Pulse Oximetry 98 100 Oxygen Delivery Me thod Room Air Room Air 01/02/25 03:00 01/02/25 07:43 Temperature 98.1 F Pulse Rate [Left P ulse Oximeter] 77 75 Respiratory Rate 16 18 Blood Pressure [Le ft Arm] 159/92 H 155/90 H Pulse Oximetry 99 99 Oxygen Delivery Me thod Room Air Room Air Labs/Imaging Imaging Imaging: Improvement in chest x-ray, air within the pleural space is measuring still at 0.8 cm. Right-sided chest tube in appropriate position. Progress Note:A&P Assessment and plan (1) Spontaneous pneumothorax: Status: Acute Assessment and Plan: Patient is status post right-sided chest tube placement for spontaneous pneumothorax. His chest tube has been on suction since yesterday. Chest x-ray this morning does demonstrate a decrease in his pneumothorax (1.7 cm-0.8 cm). No air leak was appreciated on today's examination. Recommend continuing to suction with repeat chest x-ray tomorrow morning, hopefully this will show complete resolution. Okay to take chest tube off of suction when showering or taking walks. He was educated on being careful to not dislodge the chest tube. Plan -regular diet -p.o. pain meds as needed -okay for ambulation and showering. -repeat chest x-ray tomorrow morning -chest tube continued to suction -20
[2025-01-02] MEDS: ONDANSETRON 2 MG/ML inj 4 MG IVP ×2 (08:11→23:39)
[2025-01-02] MEDS: BUSPIRONE 10 MG TABLET 20 MG PO (08:35)
[2025-01-02] MEDS: METOPROLOL SUCCINATE (XL) 25 MG TAB PO (08:35)
[2025-01-02] MEDS: DOCUSATE SODIUM 100 MG CAPSULE PO ×2 (08:39→15:22)
[2025-01-02 11:17] VITALS: BP 148/55; PULSE 81; RESP 16; O2SAT 99
[2025-01-02 14:26] VITALS: BP 148/78; PULSE 66; RESP 16; TEMP 36.6; O2SAT 99
--- NOTE | 2025-01-02 17:00 | PC.NURSE ---
Shift Summary: Patient pleasant and cooperative. Needed PRN IV medication for pain following shower and dressing change. SBA due to chest tube. Ambulated in halls. C/o difficulty passing BM, given PRN standing medication, see NOV. Vitals stable and WNL. Verbalized pain is better managed today. Tolerating small frequent snacks from family due to some nausea this morning.
[2025-01-02] MEDS: NICOTINE 14 mg PATCH 1 PATCH TRANSDERMA (18:10)
[2025-01-02] MEDS: LORazepam 0.5 MG TABLET PO (18:52)
[2025-01-02 19:00] VITALS: BP 176/72; PULSE 68; RESP 16; TEMP 36.6; O2SAT 99
[2025-01-02] MEDS: CALCIUM CARBONATE 500 MG CHEW PO (22:52)
[2025-01-02 23:00] VITALS: BP 137/73; PULSE 68; PULSE 80; RESP 16; RESP 18; TEMP 36.8; O2SAT 100
[2025-01-03] VITALS (11 sets, daily range): BP systolic 144–162; BP diastolic 87–98; PULSE 68–82; RESP 16; TEMP 36.7; O2SAT 92–99
[2025-01-03] MEDS: LORazepam 0.5 MG TABLET PO ×3 (03:35→21:31)
[2025-01-03] MEDS: ACETAMINOPHEN 325 MG TABLET PO ×2 (03:36→20:27)
[2025-01-03] MEDS: OXYCODONE 5 MG TABLET PO ×4 (03:37→20:25)
[2025-01-03] MEDS: ONDANSETRON 2 MG/ML inj 4 MG IVP ×4 (04:08→21:33)
[2025-01-03] MEDS: HYDROmorphone 0.5 mg/0.5 ml inj IVP ×4 (04:08→21:32)
--- NOTE | 2025-01-03 06:00 | CRLHL7_ITS ---
For Patients: As a result of the Century Cures Act, medical imaging exams and procedure reports are released immediately into your electronic medical record. You may view this report before your referring provider. If you have questions, please contact your health care provider. INDICATION: Follow-up right pneumothorax. COMPARISON: 01/02/2025 TECHNIQUE: One view FINDINGS: As discussed below: IMPRESSION: 1. Persistent slightly smaller right apical pneumothorax. Air gap measures 5 mm, previously 8 mm. In-situ right thoracostomy tube. No other significant interval change. Dictated by Elías Pruitt MD @ 01/03/2025 6:23:14 AM (Electronically Signed)
--- NOTE | 2025-01-03 07:02 | PC.NURSE ---
[id number]: Pt alert, oriented and vitally stable. Pt stated pain rated 8-9/10 throughout shift, prn pain medication given. Pt stated having anxiety related to medical situation, pt reassured and prn Ativan given. Nicotine patch in place, Tegaderm placed over top to keep in place. Chest tube patent and draining. Pt in bed, appears to be resting, call light within reach.
[2025-01-03] MEDS: METOPROLOL SUCCINATE (XL) 25 MG TAB PO (08:00)
[2025-01-03] MEDS: BUSPIRONE 10 MG TABLET 20 MG PO (08:00)
[2025-01-03] MEDS: SODIUM CHLORIDE 0.9 % (FLUSH) 10 ML SYRINGE 5 ML IVF ×2 (08:01→21:33)
--- NOTE | 2025-01-03 08:04 | PM.GSPN ---
Subjective Subjective Date Seen: 01/03/25 Interval history: Doing well. Pain at chest tube insertion site, controlled. Has been walking the halls. Was able to take a shower yesterday. Exam Narrative: Exam Narrative: Gen: alert and oriented Resp: maintained on RA. R chest tube in place, no evidence of air leak. Const: Vital Signs, click to edit/add: Vital Signs - 24 hr 01/02/25 11:17 01/02/25 14:26 01/02/25 19:00 Temperature 98 F 98 F Pulse Rate [Left P ulse Oximeter] 81 66 68 Respiratory Rate 16 16 16 Blood Pressure [Le ft Arm] 148/55 H 148/78 H 176/72 H Pulse Oximetry 99 99 99 Oxygen Delivery Me thod Room Air Room Air Room Air 01/02/25 23:00 01/02/25 23:00 01/03/25 03:00 Temperature 98.2 F Pulse Rate [Left P ulse Oximeter] 68 80 80 Respiratory Rate 16 18 16 Blood Pressure [Le ft Arm] 137/73 154/88 H Pulse Oximetry 100 96 Oxygen Delivery Me thod Room Air Room Air Labs/Imaging Imaging Imaging: CXR: Small apical pneumo on right side with chest tube in place (<5mm). Progress Note:A&P Assessment and plan (1) Spontaneous pneumothorax: Status: Acute Assessment and Plan: Patient is status post right-sided chest tube placement for spontaneous pneumothorax. His chest tube has been on suction since yesterday. Chest x-ray this morning with very small amount of air at apex. Chest tube remains in good position with no evidence of air leak on examination. Chest tube taken off of suction. Will do a timed CXR at 3pm. If no evidence of reaccumulation to pneumothorax will plan for a clamping trial overnight.
--- NOTE | 2025-01-03 14:54 | PC.NURSE ---
Pt doing well this shift. VSS. Continues to remain on room air. Pain is being controlled with PO and IV pain medications. Pt has been walking the halls multiple times today and tolerating well. No shortness of breath with activity. Family at bedside, pt is resting well at this time.
--- NOTE | 2025-01-03 15:00 | CRLHL7_ITS ---
For Patients: As a result of the Cures Act, medical imaging exams and procedure reports are released immediately into your electronic medical record. You may view this report before your referring provider. If you have questions, please contact your health care provider. INDICATION: Follow up chest tube TECHNIQUE: Portable AP view of the chest, 2 images COMPARISON: Chest x-ray performed earlier today FINDINGS: Unchanged right chest tube with tip in the lateral apex. Small right apical pneumothorax, mildly increased. Otherwise unchanged and unremarkable. IMPRESSION: Small right apical pneumothorax, mildly increased for a chest tube unchanged. Dictated by Jean Mojica MD @ 01/03/2025 3:22:57 PM (Electronically Signed)
[2025-01-03] MEDS: NICOTINE 14 mg PATCH 1 PATCH TRANSDERMA (17:20)
--- NOTE | 2025-01-03 19:40 | PC.NURSE ---
end of shift. pt has been very pleasant and cooperative. not alot of chest pain till he was hooked back up to suctions. pain meds given. SBA due to chest tube. Ambulated in halls. he has been passing gas chest tube to water seal most of the day
[2025-01-04] VITALS (9 sets, daily range): BP systolic 134–170; BP diastolic 82–100; PULSE 65–87; RESP 14–18; TEMP 36.5–36.9; O2SAT 94–99
[2025-01-04] MEDS: OXYCODONE 5 MG TABLET PO ×6 (03:01→22:56)
[2025-01-04] MEDS: ACETAMINOPHEN 325 MG TABLET PO ×3 (03:01→17:07)
--- NOTE | 2025-01-04 06:00 | CRLHL7_ITS ---
For Patients: As a result of the Century Cures Act, medical imaging exams and procedure reports are released immediately into your electronic medical record. You may view this report before your referring provider. If you have questions, please contact your health care provider. INDICATION: Follow-up pneumothorax. Right chest tube COMPARISON: January 03, 2025 TECHNIQUE: A single view study was obtained as a portable CXR, January 04, 2025 FINDINGS: As discussed below IMPRESSION: 1. Heart size normal. 2. Left lung and left pleural space appear normal. 3. Right chest tube entering laterally at the right apex. 4. Small right apical pneumothorax with an air gap of about 7 millimeters unchanged. No pleural effusion. Dictated by Morgan Maradiaga MD @ 01/04/2025 6:18:01 AM (Electronically Signed)
[2025-01-04] MEDS: LORazepam 0.5 MG TABLET PO ×3 (06:20→21:43)
--- NOTE | 2025-01-04 06:46 | PC.NURSE ---
End of shift report [id number]: VSS. Afebrile. Pt rated pain from a 3-8. PRN pain meds offered and given with relief. Pt was on 1 L O2 via NC overnight to maintain O2 sats above 95 per order. Once pt awake O2 taken off and pt able to keep O2 above 95%. Pt expressed he was?feeling anxious and prn Ativan offered and given, upon reassessment pt was sleeping. Chest tube is intact in right upper chest, suction is on. Abdominal binder is C/D/I. Darion patch is intact on L shoulder. Ind in room. Intermittent ice applied. Call light within reach.
[2025-01-04] MEDS: BUSPIRONE 10 MG TABLET 20 MG PO (09:02)
[2025-01-04] MEDS: SODIUM CHLORIDE 0.9 % (FLUSH) 10 ML SYRINGE 5 ML IVF ×3 (09:02→23:45)
[2025-01-04] MEDS: DOCUSATE SODIUM 100 MG CAPSULE PO (09:02)
[2025-01-04] MEDS: METOPROLOL SUCCINATE (XL) 25 MG TAB PO (09:02)
--- NOTE | 2025-01-04 15:04 | PM.GSPN ---
Subjective Subjective Date Seen: 01/04/25 Interval history: Patient ?doing great today?. Denies any chest pain or shortness of breath. Does have a productive cough. Has anxiety associated with coughing too much or having a bowel movement and having to bear down. Has been walking the halls without difficulty. Exam Narrative: Exam Narrative: Respiratory: Right chest tube in place. No air leak appreciated on examination with patient coughing or talking. Const: Vital Signs, click to edit/add: Vital Signs - 24 hr 01/03/25 15:15 01/03/25 15:52 01/03/25 19:00 Temperature 98.0 F 98.0 F Pulse Rate [Left P ulse Oximeter] 78 78 82 Respiratory Rate 16 16 16 Blood Pressure [Le ft Arm] 150/92 H 162/96 H Pulse Oximetry 99 99 Oxygen Delivery Me thod Room Air Room Air Oxygen Flow Rate 01/03/25 21:55 01/03/25 23:00 01/03/25 23:05 Temperature Pulse Rate [Left P ulse Oximeter] 82 Respiratory Rate 16 Blood Pressure [Le ft Arm] Pulse Oximetry 92 95 Oxygen Delivery Me thod Room Air Nasal Cannula Oxygen Flow Rate 0.5 01/03/25 23:55 01/04/25 01:10 01/04/25 01:18 Temperature Pulse Rate [Left P ulse Oximeter] 68 Respiratory Rate 16 14 Blood Pressure [Le ft Arm] Pulse Oximetry 95 94 95 Oxygen Delivery Me thod Nasal Cannula Nasal Cannula Nasal Cannula Oxygen Flow Rate 0.5 0.5 1 01/04/25 03:00 01/04/25 06:32 01/04/25 07:35 Temperature 97.7 F 97.9 F Pulse Rate [Left P ulse Oximeter] 71 71 Respiratory Rate 16 14 Blood Pressure [Le ft Arm] 144/93 H 145/86 H Pulse Oximetry 97 99 99 Oxygen Delivery Me thod Nasal Cannula Room Air Room Air Oxygen Flow Rate 1 01/04/25 07:35 01/04/25 11:36 Temperature 97.7 F Pulse Rate [Left P ulse Oximeter] 71 68 Respiratory Rate 14 18 Blood Pressure [Le ft Arm] 158/90 H Pulse Oximetry 97 Oxygen Delivery Me thod Room Air Oxygen Flow Rate Labs/Imaging Imaging Imaging: Chest x-ray with improved apical pneumothorax on the right, chest tube in appropriate position. Progress Note:A&P Assessment and plan (1) Spontaneous pneumothorax: Status: Acute Assessment and Plan: Patient is status post right-sided chest tube placement for spontaneous pneumothorax. Chest x-ray looks improved this morning. Will take chest tube off of suction and repeat imaging tomorrow morning. Anticipate possible removal tomorrow. Patient was reassured that it is okay for him to cough or bear down to have a bowel movement if needed. Ambulation was encouraged.
[2025-01-04] MEDS: NICOTINE 14 mg PATCH 1 PATCH TRANSDERMA (17:50)
--- NOTE | 2025-01-04 18:31 | PC.NURSE ---
End of Shift: Patient pleasant and cooperative. Patient vitally stable, lungs clear, BS WNL, IV SL and intact. Patient rates right side chest pain at most 6/10, tylenol given x2 and oxy given x3. Chest tube has no suction connected. Patient tolerating regular diet, and urinating well. Patient is independent and has walked the halls.
[2025-01-04] MEDS: HYDROmorphone 0.5 mg/0.5 ml inj IVP (23:44)
[2025-01-05 03:00] VITALS: BP 139/88; PULSE 76; RESP 16; O2SAT 94
[2025-01-05] MEDS: LORazepam 0.5 MG TABLET PO (04:48)
--- NOTE | 2025-01-05 06:20 | CRLHL7_ITS ---
For Patients: As a result of the Century Cures Act, medical imaging exams and procedure reports are released immediately into your electronic medical record. You may view this report before your referring provider. If you have questions, please contact your health care provider. INDICATION: Follow-up pneumothorax COMPARISON: January 04, 2025 TECHNIQUE: A single view study was obtained as a portable CXR, January 05, 2025 FINDINGS: As discussed below IMPRESSION: Small right apical pneumothorax unchanged with an air gap of about 7 millimeters. Chest tube ending at the right apex unchanged in position. Otherwise unremarkable exam Dictated by Morgan Maradiaga MD @ 01/05/2025 6:37:49 AM (Electronically Signed)
--- NOTE | 2025-01-05 06:22 | PC.NURSE ---
[id number] Pt chest tube remained off of suction for entire shift, pt denies SOB, pain with breathing, or difficulty breathing. pain well controlled with prn pain medications. needed IV dilaudid x1 at bedtime due to increased pain to R shoulder blade, resp assessment unchanged and pt reports pain gone after administration. pt slept remainder of night. maintain O2 mid to upper 90's on RA.
[2025-01-05] MEDS: OXYCODONE 5 MG TABLET PO (06:42)
[2025-01-05] MEDS: DOCUSATE SODIUM 100 MG CAPSULE PO (06:43)
[2025-01-05] MEDS: ACETAMINOPHEN 325 MG TABLET PO (06:43)
[2025-01-05 07:00] VITALS: BP 142/93; PULSE 99; RESP 16; TEMP 36.8; O2SAT 100
[2025-01-05] MEDS: METOPROLOL SUCCINATE (XL) 25 MG TAB PO (08:34)
[2025-01-05] MEDS: SODIUM CHLORIDE 0.9 % (FLUSH) 10 ML SYRINGE 5 ML IVF (08:34)
[2025-01-05] MEDS: BUSPIRONE 10 MG TABLET 20 MG PO (08:34)
--- NOTE | 2025-01-05 09:02 | P.DS_ITS ---
DS: Providers Provider Date Seen: 01/05/25 Date of admission: 01/01/25 09:03 Primary care physician: Rosy Lunsford PA-C Admitting Clinician: Claribel Gonzalez MD Consults: 12/31/24 20:05 Consult to Physician [CONS] Routine Comment: Consulting Provider: Tamela Pelletier Has provider been notified: Yes Consult to Respiratory Therapy [CONS] Routine Comment: Reason(s) for RT Consult:: Consult Comment: Pneumothorax Attending Physician on discharge: Claribel Gonzalez MD DS: Diagnosis Discharge Diagnosis (1) Tobacco use disorder: Status: Acute Problem details: Smokes tobacco and THC, occasionally vapes - risk factor for spontaneous pneumothorax (2) Spontaneous pneumothorax: Status: Acute Problem details: 12/30/2024: CXR shows moderate sized right pneumothorax with air gap measuring approximately 3.5 centimeters at the right lung apex No trauma or injury, recurrent, previous spontaneous left side 2021 (self reported as approximately 3 cm) Patient reports working with iodine powder prior to both events - according to medical literature there is no evidence to suggest that iodine powder itself can cause a pneumothorax ED provider discussed with General surgery, Dr. Pelletier - will follow Admit for monitoring, repeat CXR at 11:00 p.m., sooner if new or worsening symptoms, and pending these results, repeat CXR Wednesday Discussed supplemental oxygen with respiratory therapy. Patient saturating 98-1 00%. Advised against supplemental oxygen in order to monitor for acute changes in oxygenation and symptoms, allowing for earlier repeat imaging if needed. Otherwise low dose per NC or oxy mask prn comfort. High-flow oxygen not advised given potential for adverse event 12/31/2024: Enlarging spontaneous right pneumothorax. Status post chest tube placement with decrease in size of pneumothorax. Dr. Pelletier is managing the chest tube and chest tube management efforts. (3) Generalized anxiety disorder: Status: Chronic Problem details: - Currently on BuSpar 20 mg just in the morning. No longer on bupropion - Continue with oral analgesia as needed and as needed lorazepam for breakthrough anxiety at this time. DS: Summary Hospital Course Hospital Course: The patient is a 29 year old male who presented to the emergency department on 01/01 with right sided chest pain and shortness of breath. He was found to have aright-sided pneumothorax. He does have a history of a left-sided spontaneous pneumothorax which was managed conservatively. On this admission, his pneumothorax was larger after short period of observation therefore chest tube was placed. Initial attempts to place him to water seal resulted in slight increase in the pneumothorax, however he tolerated water seal overnight from 01/04-01/05 without any increase in pneumothorax. After pulling his chest tube, a 6 hour post x-ray did not worsening of the pneumothorax and therefore the patient was discharged home. Time Spent with Patient Time attestation: Total time spent providing and/or coordinating discharge services: Exam Narrative: Exam Narrative: Please see my progress note from earlier today. Const: Vital Signs, click to edit/add: Vital Signs - 24 hr 01/04/25 11:36 01/04/25 15:13 01/04/25 15:13 Temperature 97.7 F 98.2 F Pulse Rate [Left P ulse Oximeter] 68 81 81 Respiratory Rate 18 18 18 Blood Pressure [Le ft Arm] 158/90 H 134/89 Pulse Oximetry 97 97 Oxygen Delivery Me thod Room Air Room Air 01/04/25 19:00 01/04/25 23:00 01/04/25 23:00 Temperature 98.2 F 98.4 F Pulse Rate [Left P ulse Oximeter] 87 65 Respiratory Rate 16 16 16 Blood Pressure [Le ft Arm] 170/100 H 167/82 H Pulse Oximetry 97 97 Oxygen Delivery Me thod Room Air Room Air 01/05/25 03:00 Temperature Pulse Rate [Left P ulse Oximeter] 76 Respiratory Rate 16 Blood Pressure [Le ft Arm] 139/88 Pulse Oximetry 94 Oxygen Delivery Me thod Room Air Discharge Plan Discharge Disposition: Home, Self-Care Date of Admission: 01/01/25 09:03 Consulting Providers: Tamela Pelletier Primary Care Provider: Rosy Lunsford Condition: Improved Anticipated Discharge Date/Time: 01/05/25 15:38 Discharge Medications: Continued metoprolol succinate 25 mg tablet extended release 24 hr 25 mg PO DAILY Discharge Orders: Discharge Order (Routine); Ordered 01/05/25 Ordered By: Sasha Steiner Patient Education: Spontaneous Pneumothorax (DC) Activity Level: No strenuous activity Activity Detail: Activity as tolerated. Avoid strenuous activity. No lifting greater than 20 lb for 2 weeks. Discharge Diet: Regular Follow Up Appointments: Tamela Pelletier MD [Staff Physician] - Chelsea Devries MD [Staff Physician] - 01/10/25 1:30 pm ([facility] for follow-up[facility] Rosy Lunsford PA-C [Primary Care Provider] - Forms: [facility], [facility] Discharge Comments: Patient to follow-up in clinic next week. Chest x-ray prior to appointment.
--- NOTE | 2025-01-05 09:02 | PM.GSPN ---
Subjective Subjective Date Seen: 01/05/25 Interval history: Osbaldo did well overnight. He is somewhat anxious about whether not the chest tube can come out today. Some shoulder pain requiring Dilaudid secondary to chest tube irritation. No shortness of breath. Exam Narrative: Exam Narrative: General: No acute distress CV: Regular rate Respiratory: Breathing nonlabored on room air. Breath sounds clear bilaterally. Chest tube with scant output in the last 24 hours. Air leak negative. Chest tube pulled today at bedside without incident. Breath sounds clear bilaterally post chest tube pull. Const: Vital Signs, click to edit/add: Vital Signs - 24 hr 01/04/25 11:36 01/04/25 15:13 01/04/25 15:13 Temperature 97.7 F 98.2 F Pulse Rate [Left P ulse Oximeter] 68 81 81 Respiratory Rate 18 18 18 Blood Pressure [Le ft Arm] 158/90 H 134/89 Pulse Oximetry 97 97 Oxygen Delivery Me thod Room Air Room Air 01/04/25 19:00 01/04/25 23:00 01/04/25 23:00 Temperature 98.2 F 98.4 F Pulse Rate [Left P ulse Oximeter] 87 65 Respiratory Rate 16 16 16 Blood Pressure [Le ft Arm] 170/100 H 167/82 H Pulse Oximetry 97 97 Oxygen Delivery Me thod Room Air Room Air 01/05/25 03:00 Temperature Pulse Rate [Left P ulse Oximeter] 76 Respiratory Rate 16 Blood Pressure [Le ft Arm] 139/88 Pulse Oximetry 94 Oxygen Delivery Me thod Room Air Labs/Imaging Imaging Imaging: Chest x-ray shows small stable 7 mm pneumothorax at the apex. Progress Note:A&P Assessment and plan (1) Tobacco use disorder: Status: Acute (2) Spontaneous pneumothorax: Status: Acute (3) Generalized anxiety disorder: Status: Chronic Plan The patient is a 29-year-old male with spontaneous pneumothorax now status post chest tube placement. He has had issues throughout the past week with the pneumothorax growing slightly larger with water seal, however he has been stable for the last 24 hours. He continues to have no evidence of an air leak. His chest tube was pulled today. Will plan on repeat chest x-ray in 6 hours. If stable could DC home later today. If chest x-ray shows increasing pneumothorax, will keep inpatient and repeat imaging tomorrow.
[2025-01-05 11:00] VITALS: BP 136/84; PULSE 87; RESP 16; TEMP 36.7; O2SAT 97
--- NOTE | 2025-01-05 14:55 | PC.NURSE ---
End of shift [id number]: Pt AxOx4, pleasant, and cooperative with cares. Chest tube was removed this morning. Barrier cream was applied to surrounding site that appears reddened and blistered. Pt reported relief. Site has remained CDI. Pt indep in room, walking in hallways with family member. Pt denies pain throughout the shift. Pt continent of the bladder. Pt refused breakfast and lunch, radio news writer encouraged multiple times and offered snacks throughout the shift. Pt appears resting with call light in reach.
[2025-01-05 15:00] VITALS: BP 149/92; PULSE 86; RESP 16; TEMP 36.4; O2SAT 98
--- NOTE | 2025-01-05 15:00 | CRLHL7_ITS ---
For Patients: As a result of the Century Cures Act, medical imaging exams and procedure reports are released immediately into your electronic medical record. You may view this report before your referring provider. If you have questions, please contact your health care provider. INDICATION: Chest tube removal TECHNIQUE: Chest 1 views. COMPARISON: Chest radiograph 01/05/2025. FINDINGS: Cardiovasculature and mediastinum: Heart size is normal. Unremarkable mediastinum. Lungs and pleural spaces: Lungs are clear. Decreased size of the right apical pneumothorax with 3 millimeters of pleural-parenchymal separation, previously 7 millimeters. Interval removal of the right chest tube. Bones and soft tissues: No significant findings. IMPRESSION: Interval removal of the right chest tube with decreased size of the right apical pneumothorax. Dictated by Viviane Prado MD @ 01/05/2025 3:32:46 PM (Electronically Signed)
--- NOTE | 2025-01-05 16:21 | PC.NURSE ---
Addendum entered by Rosy Ohara RN 01/05/25 18:14: Updated patient on Dr Steiner's orders, Ok to shower after 48 hours. Original Note: Pt discharge instructions reviewed verbally and printout, all questions answered. No printout instructions given regarding dressing at chest tube site or chest tube site cares. Pt eager to D/C home. Instructed pt and pt fiance to Not shower/bathe and Do not remove dressing until further notice. RN to follow up with Dr Steiner and call patient at [phone]. Pt verbally consented OK to leave detailed voicemail in the event pt does not answer at time of call. Pt given M/S front office help number to call if he has any follow up questions regarding Dressing/chest tube site instructions. Pt verbalized understanding of instructions. D/C via ambulation at [id number]
== END 2025-01-05 16:14 | disposition home or self-care (01) | DRG 143 ==
LOC: ED 18:06 → MEDSURG 18:59
PROVIDERS: Physician Assistant; Admitting Provider Internal Medicine; Emergency Provider Emergency Medicine; PCP Physician Assistant; Visit Provider Family Medicine
DX: J93.83 Other pneumothorax (principal); F41.1 Generalized anxiety disorder; F32.9 Major depressive disorder, single episode, unspecified; R00.0 Tachycardia, unspecified; F17.210 Nicotine dependence, cigarettes, uncomplicated; F17.290 Nicotine dependence, other tobacco product, uncomplicated; F12.90 Cannabis use, unspecified, uncomplicated; J45.909 Unspecified asthma, uncomplicated
CPT/HCPCS: 32551; 36415; 71045; 71046; 80048; 84484; 85027; 85379; 93005; 94761; 99284; 99285; A9270; G0378; J1171; J1885; J2250; J2405; J3010; J7030; S4990